=== PATIENT | male | born 1940 | race Caucasian/White ===

== ENCOUNTER 2022-01-28 12:17 | Outpatient (CLI) | payer MEDICARE, BC | END 2022-01-28 12:18 | disposition home or self-care (01) | LOC: TBSIIMAG 12:17 | PROVIDERS: ATTEND Neurological Surgery | DX: M43.16 Spondylolisthesis, lumbar region (principal); M47.816 Spondylosis without myelopathy or radiculopathy, lumbar region | CPT/HCPCS: 72100 ==

== ENCOUNTER 2022-06-17 13:51 | Outpatient (CLI) | payer MEDICARE, BC | END 2022-06-17 13:52 | disposition home or self-care (01) | LOC: TBSIIMAG 13:51 | PROVIDERS: ATTEND Neurological Surgery | DX: M43.16 Spondylolisthesis, lumbar region (principal) | CPT/HCPCS: 72100 ==

== ENCOUNTER 2022-07-08 07:29 | Outpatient (CLI) | payer MEDICARE, BC | END 2022-07-08 07:30 | disposition home or self-care (01) | LOC: MRI 07:29 | PROVIDERS: ATTEND Neurological Surgery | DX: M48.062 Spinal stenosis, lumbar region with neurogenic claudication (principal); M48.07 Spinal stenosis, lumbosacral region; N28.9 Disorder of kidney and ureter, unspecified; Z98.890 Other specified postprocedural states | CPT/HCPCS: 72131; 72148 ==

== ENCOUNTER 2023-04-30 08:07 | Outpatient (CLI) | payer MEDICARE, BC | END 2023-04-30 08:08 | disposition home or self-care (01) | LOC: BICRAD 08:07 | PROVIDERS: ATTEND Internal Medicine Rheumatology | DX: M25.551 Pain in right hip (principal); M16.11 Unilateral primary osteoarthritis, right hip ==

== ENCOUNTER 2024-05-10 07:48 | Outpatient (CLI) | payer MEDICARE, BC | END 2024-05-10 07:49 | disposition home or self-care (01) | LOC: MRI 07:48 | PROVIDERS: ATTEND Nurse Practitioner Family | DX: M48.062 Spinal stenosis, lumbar region with neurogenic claudication (principal); M43.16 Spondylolisthesis, lumbar region; M47.816 Spondylosis without myelopathy or radiculopathy, lumbar region; M51.35 Other intervertebral disc degeneration, thoracolumbar region; M51.369 Other intervertebral disc degeneration, lumbar region without mention of lumbar back pain or lower extremity pain; M47.817 Spondylosis without myelopathy or radiculopathy, lumbosacral region; M51.379 Other intervertebral disc degeneration, lumbosacral region without mention of lumbar back pain or lower extremity pain; Z98.890 Other specified postprocedural states | CPT/HCPCS: 71046; 72148 ==